=== PATIENT | female | born 1945 | race African-American/Black ===

== ENCOUNTER 2018-07-20 02:58 | Emergency (ER) | payer MEDICARE, BC ==
[~2018-07-20] VITALS: Ht 160 cm; Wt 81.8 kg
[2018-07-20 03:05] VITALS: Ht 160 cm; Wt 81.8 kg
[2018-07-20] MEDS ORDERED: LOPRESSOR I5 MG/5 ML (03:06)
[2018-07-20] MEDS ORDERED: CARDIZEM120 MG (03:06)
[2018-07-20] MEDS ORDERED: COZAAR25 MG (03:07)
[2018-07-20] MEDS ORDERED: VITAMIN D3400 UNI1 (03:07)
[2018-07-20] MEDS ORDERED: INDOCIN25 MG PO (03:09)
[2018-07-20] MEDS ORDERED: TYLENOL W/CODEI1 TAB PO (03:51)
[2018-07-20 04:00] VITALS: BP 189/98
== END 2018-07-20 04:00 | disposition home or self-care (01) ==
LOC: D.ER 02:58
DX: M10.072 Idiopathic gout, left ankle and foot (principal)

== ENCOUNTER 2018-09-10 13:14 | Outpatient (CLI) | payer MEDICARE, BC ==
[~2018-09-10] VITALS: Ht 160 cm; Wt 81.8 kg
[~2018-09-10 13:14] MED LIST: CARDIZEM120 MG; COZAAR25 MG; INDOCIN25 MG PO; LOPRESSOR I5 MG/5 ML; TYLENOL W/CODEI1 TAB PO; VITAMIN D3400 UNI1
[2018-09-10 14:10] VITALS: BP 163/81; Ht 160 cm; Wt 81.8 kg
== END 2018-09-10 14:15 | disposition home or self-care (01) ==
LOC: D.OPS 13:14
PROVIDERS: ATTEND Family Medicine
DX: M81.0 Age-related osteoporosis without current pathological fracture (principal)